=== PATIENT | male | born 1970 | race Caucasian/White ===

== ENCOUNTER → 2020-01-12 11:18 | Outpatient (BNVA) | payer MEDICAID, SELFPAY | PROVIDERS: Family Provider Nurse Practitioner; Visit Provider Nurse Practitioner Family | DX: M79.671 Pain in right foot (principal) | CPT/HCPCS: 73630 ==

== ENCOUNTER 2025-04-23 09:36 | Emergency (ER) | payer MEDICAID, SELFPAY ==
--- OUTSIDE RECORDS SUMMARY | 2025-04-19 13:00 | XMS_ITS | Encounter Summary ---
Author Organization [facility] Address [address] [place] [address] Care Team Providers Care Surfacer Name Role Phone Anna Marie Yariel Primary Care Provider [phone] Reason for Referral * MRI (Routine) - Pending Review Specialty Diagnoses / Procedures Referred By Contac t Referred To Contact Radiology Diagnoses Chronic right-sided low back pain with sciatica, sciatica laterality unspecified Procedures MRI LUMBAR WO CONTRAST Radha Marroquin FNP [address] [place] [phone] Phone: tel: fax: [facility] [place] [address] [place] [address] Phone: tel: fax: Referral ID Status Reason Start Date Expiration Date V isits Requested Visits Authorized [id number] Pending Review 04/19/2025 05/20/2026 1 1 * Eval and Treat (Routine) - Open Specialty Diagnoses / Procedures Referred By Contac t Referred To Contact Pain Management Diagnoses Chronic right-sided low back pain with sciatica, sciatica laterality unspecified Procedures MT OFFICE/OUTPATIENT ESTABLISHED MOD MDM 30 MIN MT OFFICE/OUTPATIENT NEW MODERATE MDM 45 MINUTES Radha Marroquin FNP [address] [place] [phone] Phone: tel: fax: [facility] [address] [place] [address] Phone: tel: fax: Referral ID Status Reason Start Date Expiration Date Visits Re quested Visits Authorized [id number] Open 04/19/2025 04/19/2026 1 1 Reason for Visit * Reason Comments Back Pain Getting worse. Would like to go over xray results. Referral Request Needing a new referr al for Pain management in [facility] Encounter Details Date Type Department Care Team (Late st Contact Info) Description 04/19/2025 1:00 PM CDT Office Visit [facility] [place] [address] [place] [phone] Radha Marroquin FNP [address] [phone] Chronic right-sided low back pain with sciatica, sciatica laterality unspecified (Primary Dx) Social History Tobacco Use Types Packs/Day Years Used Date Smoking Tobacco: Every Day Cigarettes 0.3 40.8 Started: 1984 Passive Smoke Exposure: Current Smokeless Tobacco: Never Alcohol Use Standard Drinks/Week Comments Not Currently 0 (1 standard drink = 0.6 oz pur e alcohol) Sex and Gender Information Value Date Recorded Sex Assigned at Not on file Legal Sex Male 4:48 AM MULTISENSOR INTELLIGENCE OFFICER Gender Identity Not on file Sexual Orientation Not on file documented as of this encounter Last Filed Vital Signs Vital Sign Reading Time Taken Comments Blood Pressure 118/76 04/19/2025 1:11 PM CDT Pulse 95 04/19/2025 1:11 PM CDT Temperature 36.4 C (97.6 F) 04/19/2025 1:11 PM CDT Respiratory Rate 18 04/19/2025 1:11 PM CDT Oxygen Saturation 99% 04/19/2025 1:11 PM CDT Inhaled Oxygen Concentration - - Weight 52.4 kg (115 lb 9.6 oz) 04/19/2025 1:11 P M CDT Height 172.7 cm (5' 8 ) 04/19/2025 1:11 PM CDT Body Mass Index 17.58 04/19/2025 1:11 PM CDT documented in this encounter Progress Notes * Radha Marroquin Abril, COMMUNICATIONS TECHNOLOGIST - 04/19/2025 1:17 PM CDT Chief Complaint Patient presents with Back Pain Getting worse. Would like to go over xray results. Referral Request Needing a new referral for Pain management in [facility] History of Present Illness The patient is a 54-year-old male who presents for follow-up on back pain. He was seen on 04/12/2025. He reports that his current medication regimen, which includes hydrocodone 5 mg and a muscle relaxer, provides relief for approximately 2 hours before the pain returns. He has been taking 3 tablets daily, exhausting his supply of 21 tablets in less than a week. The pain is localized to the right side, extending down the right leg to the toes. He has previously tried gabapentin without any noticeable improvement. He also uses a TENS unit and applies ice and heat to manage the pain. He sleeps in a ball to alleviate pressure and has tried various topical ointments, although many are not suitablefor him. He has undergone nerve cauterization 4 times, which provided temporary relief. However, heexperienced a worsening of symptoms following a steroid injection in the past. Sleep: Sleeps on a ball; uses ice and heat for pain relief REVIEW OF SYSTEMS: Review of Systems Constitutional: Negative. Negative for chills, fever and malaise/fatigue. HENT: Negative. Eyes: Negative. Respiratory: Negative. Cardiovascular: Negative. Gastrointestinal: Negative. Genitourinary: Negative. Musculoskeletal: Positive for back pain. Back pain that radiates down the right leg to the right foot. Skin: Negative. Neurological: Negative. Negative for weakness. Endo/Heme/Allergies: Negative. Psychiatric/Behavioral: Negative. Current Outpatient Medications on File Prior to Visit Medication Sig Dispense Refill baclofen (LIORESAL) 10 mg tablet Take 1 Tablet (10 mg) by mouth 2 times daily as needed for Pain. 15 Tablet 1 HYDROcodone-acetaminophen (NORCO) 5-325 mg tablet Take 1 Tablet by mouth every 8 hours as needed for Pain, Moderate. Max Daily Amount: 3 Tablets 21 Tablet 0 atorvastatin (LIPITOR) 80 mg tablet Take 1 tablet by mouth once daily 100 Tablet 3 cetirizine (ZyrTEC) 10 mg tablet Take 1 tablet by mouth once daily 100 Tablet 0 lisinopriL (PRINIVIL) 10 mg tablet Take 1 Tablet (10 mg) by mouth daily. 100 Tablet 3 acetaminophen 500 mg tablet Take 500 mg by mouth. potassium gluconate 595 mg (99 mg) Tablet Take by mouth. aspirin (ECOTRIN EC) 81 mg Tablet, Delayed Release (E.C.) Take 81 mg by mouth daily. mecobalamin (B12 ACTIVE ORAL) Take by mouth. ergocalciferol, vitamin D2, (VITAMIN D ORAL) Take by mouth. No current facility-administered medications on file prior to visit. PAST MEDICAL/SURGICAL/SOCIAL HISTORY: Past Medical History: Diagnosis Date Arthritis Depression HTN (hypertension) Rheumatic fever Past Surgical History: Procedure Laterality Date HX SHOULDER SURGERY Bilateral HX TONSILLECTOMY Social History Socioeconomic History Marital status: Tobacco Use Smoking status: Every Day Current packs/day: 0.25 Average packs/day: 0.3 packs/day for 40.8 years (10.2 ttl pk-yrs) Types: Cigarettes Start date: 1984 Passive exposure: Current Smokeless tobacco: Never Vaping Use Vaping status: Never Used Substance and Sexual Activity Alcohol use: Not Currently Drug use: No PHYSICAL EXAM Vitals: 04/19/25 1311 BP: 118/76 BP Location: Left arm Patient Position (BP): Sitting BP Cuff Size: Adult Pulse: 95 Resp: 18 Temp: 97.6 ??F (36.4 ??C) TempSrc: Temporal SpO2: 99% Weight: 52.4 kg (115 lb 9.6 oz) Height: 5' 8 (1.727 m) Physical Exam Vitals and nursing note reviewed. Constitutional: General: He is in acute distress. Appearance: He is well-developed. He is not diaphoretic. Comments: Appears to be in pain HENT: Head: Normocephalic and atraumatic. Right Ear: External ear normal. Left Ear: External ear normal. Nose: Nose normal. Mouth/Throat: Mouth: Mucous membranes are moist. Pharynx: No oropharyngeal exudate. Eyes: General: Left eye: No discharge. Conjunctiva/sclera: Conjunctivae normal. Pupils: Pupils are equal, round, and reactive to light. Cardiovascular: Rate and Rhythm: Normal rate and regular rhythm. Pulses: Normal pulses. Heart sounds: Normal heart sounds. No murmur heard. Pulmonary: Effort: Pulmonary effort is normal. No respiratory distress. Breath sounds: Normal breath sounds. Abdominal: General: Bowel sounds are normal. Palpations: Abdomen is soft. Musculoskeletal: General: Tenderness present. Cervical back: Normal range of motion and neck supple. Lumbar back: Tenderness present. Positive right straight leg raise test. Skin: General: Skin is warm and dry. Neurological: Mental Status: He is alert and oriented to person, place, and time. Mental status is at baseline. Comments: Walking with a cane. Psychiatric: Behavior: Behavior normal. Thought Content: Thought content normal. Judgment: Judgment normal. Narrative & Impression IMPRESSION: Please see below. Exam: XR LUMBAR SPINE 2 OR 3 VW Date/Time of Exam: 04/12/2025 3:29 PM Reason For Exam: See Diagnosis. Diagnosis: Chronic right-sided low back pain with sciatica, sciatica laterality unspecified; Chronic right-sided low back pain with sciatica, sciatica laterality unspecified. Findings: Comparison study 11/07/2017. AP alignment within normal limits. No acute osseous pathology. No subluxation. Mild degenerative disc disease L5-S1. No subluxation. Chronic appearing volume loss of vertebral segment of T12. ASSESSMENT/PLAN: Assessment & Plan 1. Back pain: - The patient's back pain is likely due to mild degenerative disk disease at L5- S1 and chronic appearing volume loss at the vertebral segment at T12. He reports that hydrocodone 5 mg and muscle relaxers provide only about 2 hours of relief. He has used all 21 tablets of hydrocodone in less than a week, taking more than the prescribed dosage. -Will collaborate with Dr Thrasher for a refill of Noroc until he is able to get in with pain management. - A referral to pain management will be initiated, and an MRI will be ordered to further evaluate his condition. - He is advised to continue using the TENS unit and topical treatments as needed. Note: This document was created with the help of a voice recognition software. A conscious effort has been made to improve accuracy of this document. Any obvious errors or omissions should be clarified with the author. documented in this encounter Plan of Treatment Upcoming Encounters Date Type Department Care Team (Late st Contact Info) Description 05/05/2025 2:20 PM CDT Office Visit [facility] [address] [place] [phone] Niurka Briscoe MD [address] [place] [address] 05/13/2025 4:00 PM MULTISENSOR INTELLIGENCE OFFICER Appointment [facility] [address] [place] [phone] Radha Marroquin, COMMUNICATIONS TECHNOLOGIST [address] [place] [phone] 10/20/2025 9:40 AM CDT Office Visit [facility] [place] [address] [place] [phone] Yariel Thrasher DO [address] [place] [phone] Scheduled Orders Name Type Priority Associated Diagnoses Orde r Schedule MRI LUMBAR WO CONTRAST Imaging Routine Chronic right-sided low back pain with sciatica, sciatica laterality unspecified 1 Occurrences starting 04/19/2025 until 04/19/2026 Scheduled Referrals Name Type Priority Associated Diagnoses Orde r Schedule AMB REFERRAL TO PAIN CLINIC Outpatient Referral Routine Chronic right-sided low back pain with sciatica, sciatica laterality unspecified Ordered: 04/19/2025 documented as of this encounter Visit Diagnoses Diagnosis Chronic right-sided low back pain with sciatica, sciatica laterality unspecified- Primary documented in this encounter Additional Health Concerns Assessment Noted Time PHQ-9 Depression Total Score: 4 04/12/20 25 2:47 PM CDT documented as of this encounter Care Teams Surfacer Relationship Specialty Start Date End Date Yariel Thrasher DO [address] [place] [phone] PCP - General Family Practice 12/18/22 documented as of this encounter
[2025-04-23 09:55] VITALS: PULSE 78; RESP 18; TEMP 36.6; O2SAT 99
--- OUTSIDE RECORDS SUMMARY | 2025-04-23 10:04 | XMS_ITS | Encounter Summary ---
Author Organization [facility] Address [address] 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
--- OUTSIDE RECORDS SUMMARY | 2025-04-23 10:04 | XMS_ITS | Encounter Summary ---
Author Organization [facility] Address [address] [place] [address] Care Team Providers Care Adobe Layer Helper Name Role Phone Aureliano Hicks MD Primary Care Provider [phone] Encounter Details Date Type Department Care Team (Latest Contact Info) Description 02/10/2004 Outpatient Historical [facility] [address] [place] [address] Cyril Scales MD [address] [phone] LUMBAGO (Primary Dx) Social History Tobacco Use Types Packs/Day Years Used Date Smoking Tobacco: Never Assessed Sex and Gender Information Value Date Recorded Sex Assigned at Not on file Legal Sex Male 4:27 AM SHIP WIRER Gender Identity Not on file Sexual Orientation Not on file documented as of this encounter Plan of Treatment Not on file documented as of this encounter Visit Diagnoses Diagnosis Lumbago- Primary documented in this encounter Care Teams Adobe Layer Helper Relationship Specialty Start Date End Date Aureliano Hicks MD [address] [place] [address] PCP - General Family Practice 05/28/12 documented as of this encounter
--- OUTSIDE RECORDS SUMMARY | 2025-04-23 10:04 | XMS_ITS | Encounter Summary ---
Author Organization [facility] Address [address] [place] [address] Care Team Providers Care Sports Bookmaker Name Role Phone Aureliano Hicks MD Primary Care Provider [phone] Encounter Details Date Type Department Care Team (Late st Contact Info) Description 08/03/2004 Outpatient Historical [facility]- [address] [place] [address] 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 [phone] PCP - General Family Practice 05/28/12 documented as of this encounter
--- OUTSIDE RECORDS SUMMARY | 2025-04-23 10:04 | XMS_ITS | Encounter Summary ---
Author Organization [facility] Address [address] [place] [address] Care Team Providers Care Racing Car Driver Name Role Phone Aureliano Hicks MD Primary Care Provider Encounter Details Date Type Department Care Team (Late st Contact Info) Description 11/13/2004 Outpatient Historical [facility]- [address] [place] [address] 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
--- OUTSIDE RECORDS SUMMARY | 2025-04-23 10:04 | XMS_ITS | Encounter Summary ---
Author Organization [facility] Address [address] [place] [address] Care Team Providers Care Portable Grinding Machine Operator Name Role Phone Aureliano Hicks MD Primary Care Provider [phone] Encounter Details Date Type Department Care Team (Late st Contact Info) Description 01/17/2004 Outpatient Historical [facility] Orthoped[facility]- [address] [place] [address] 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
--- OUTSIDE RECORDS SUMMARY | 2025-04-23 10:04 | XMS_ITS | Encounter Summary ---
Author Organization [facility] Address [address] [place] [address] Care Team Providers Care Heavy Equipment Field Mechanic Name Role Phone Aureliano Hicks MD Primary Care Provider [phone] Encounter Details Date Type Department Care Team (Latest Contact Info) Description 07/30/[address] 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
--- OUTSIDE RECORDS SUMMARY | 2025-04-23 10:04 | XMS_ITS | Encounter Summary ---
Author Organization [facility] Address [address] [place] [address] Care Team Providers Care Complaint Supervisor Name Role Phone Aureliano Hicks MD Primary Care Provider [phone] Encounter Details Date Type Department Care Team (Late st Contact Info) Description 06/08/2005 Outpatient Historical [facility]MISS[facility] Rodriguez Aldana MD [address] [place] [phone] Social History Tobacco Use Types Packs/Day Years Used Date Smoking Tobacco: Never Assessed Sex and Gender Information Value Date Recorded Sex Assigned at Not on file Legal Sex Male 4:27 AM DIRECTOR HRIS Gender Identity Not on file Sexual Orientation Not on file documented as of this encounter Plan of Treatment Not on file documented as of this encounter Visit Diagnoses Not on filedocumented in this encounter Care Teams Complaint Supervisor Relationship Specialty Start Date End Date Aureliano Hicks MD [address] [place] [phone] PCP - General Family Practice 05/28/12 documented as of this encounter
--- OUTSIDE RECORDS SUMMARY | 2025-04-23 10:04 | XMS_ITS | Encounter Summary ---
Author Organization [facility] Address [address] [place] [address] Care Team Providers Care Product Blending Supervisor Name Role Phone Aureliano Hicks MD Primary Care Provider Encounter Details Date Type Department Care Team (Late st Contact Info) Description 09/29/2004 Outpatient [facility] [address] [place] [address] Gabriel Taveras MD [address] [place] [phone] SHOULDER REGION DIS NEC (Primary Dx) Social History Tobacco Use Types Packs/Day Years Used Date Smoking Tobacco: Never Assessed Sex and Gender Information Value Date Recorded Sex Assigned at Not on file Legal Sex Male 4:27 AM MANAGER WOUND CARE Gender Identity Not on file Sexual Orientation Not on file documented as of this encounter Plan of Treatment Not on file documented as of this encounter Visit Diagnoses Diagnosis Other affections of shoulder region, not elsewhere classified- Primary documented in this encounter Care Teams Product Blending Supervisor Relationship Specialty Start Date End Date Aureliano Hicks MD [address] [place] [phone] PCP - General Family Practice 05/28/12 documented as of this encounter
--- OUTSIDE RECORDS SUMMARY | 2025-04-23 10:04 | XMS_ITS | Encounter Summary ---
Author Organization [facility] Address [address] [place] [address] Care Team Providers Care Waste Collector Name Role Phone Aureliano Hicks MD Primary Care Provider [phone] Encounter Details Date Type Department Care Team (Late st Contact Info) Description 05/04/2005 Outpatient Historical [facility] Pain Management Procedures [address] [place] [phone] Wilfred Massey Social History Tobacco Use Types Packs/Day Years Used Date Smoking Tobacco: Never Assessed Sex and Gender Information Value Date Recorded Sex Assigned at Not on file Legal Sex Male 4:27 AM CLOCK SMITH Gender Identity Not on file Sexual Orientation Not on file documented as of this encounter Plan of Treatment Not on file documented as of this encounter Visit Diagnoses Not on filedocumented in this encounter Care Teams Waste Collector Relationship Specialty Start Date End Date Aureliano Hicks MD [address] [place] [phone] PCP - General Family Practice 05/28/12 documented as of this encounter
--- OUTSIDE RECORDS SUMMARY | 2025-04-23 10:04 | XMS_ITS | Encounter Summary ---
Author Organization [facility] Address [address] [place] [address] Care Team Providers Care Studio Operator Name Role Phone Aureliano Hicks MD Primary Care Provider [phone] Encounter Details Date Type Department Care Team (Latest Contact Info) Description 02/28/2005 Outpatient Historical [facility] [address] [place] [address] Cyril Scales MD [address] [place] [address] [phone] Lumbosacral spondylosis (Primary Dx); LUMB/LUMBOSAC DISC DEGEN; BACKACHE NOS Social History Tobacco Use Types Packs/Day Years Used Date Smoking Tobacco: Never Assessed Sex and Gender Information Value Date Recorded Sex Assigned at Not on file Legal Sex Male 4:27 AM FISHER TRAWL LINE Gender Identity Not on file Sexual Orientation Not on file documented as of this encounter Plan of Treatment Not on file documented as of this encounter Visit Diagnoses Diagnosis Lumbosacral spondylosis- Primary Lumbosacral spondylosis without myelopathy Degeneration of lumbar or lumbosacral intervertebral disc Backache, unspecified documented in this encounter Care Teams Studio Operator Relationship Specialty Start Date End Date Aureliano Hicks MD [address] [place] [phone] PCP - General Family Practice 05/28/12 documented as of this encounter
--- OUTSIDE RECORDS SUMMARY | 2025-04-23 10:04 | XMS_ITS | Encounter Summary ---
Author Organization [facility] Address [address] [place] [address] Care Team Providers Care Nursery Attendant Name Role Phone Aureliano Hicks MD Primary Care Provider [phone] Encounter Details Date Type Department Care Team (Late st Contact Info) Description 09/18/2005 [facility]patient [facility] [address] [place] [phone] Social History Tobacco Use Types Packs/Day Years Used Date Smoking Tobacco: Never Assessed Sex and Gender Information Value Date Recorded Sex Assigned at Not on file Legal Sex Male 4:27 AM CAREER TECHNICAL SUPERVISOR Gender Identity Not on file Sexual Orientation Not on file documented as of this encounter Plan of Treatment Not on file documented as of this encounter Visit Diagnoses Not on filedocumented in this encounter Care Teams Nursery Attendant Relationship Specialty Start Date End Date Aureliano Hicks MD [address] [place] [phone] PCP - General Family Practice 05/28/12 documented as of this encounter
--- OUTSIDE RECORDS SUMMARY | 2025-04-23 10:04 | XMS_ITS | Encounter Summary ---
Author Organization [facility] Address [address] [place] [address] Care Team Providers Care Bender Machine Name Role Phone Aureliano Hicks MD Primary Care Provider [phone] Encounter Details Date Type Department Care Team (Latest Contact Info) Description 05/18/2005 Outpatient Historical [facility] [address] 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
--- OUTSIDE RECORDS SUMMARY | 2025-04-23 10:04 | XMS_ITS | Encounter Summary ---
Author Organization [facility] Address [address] [place] [address] Care Team Providers Care Lead Portfolio Manager Name Role Phone Aureliano Hicks MD Primary Care Provider [phone] Encounter Details Date Type Department Care Team (Late st Contact Info) Description 01/05/2004 Outpatient Historical [facility] [address] [place] [address] Gabriel Taveras MD [address] [place] [phone] SHOULDER REGION DIS NEC (Primary Dx) Social History Tobacco Use Types Packs/Day Years Used Date Smoking Tobacco: Never Assessed Sex and Gender Information Value Date Recorded Sex Assigned at Not on file 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
--- OUTSIDE RECORDS SUMMARY | 2025-04-23 10:04 | XMS_ITS | Encounter Summary ---
Author Organization [facility] Address [address] [place] [address] Care Team Providers Care Trumpet Teacher Name Role Phone Aureliano Hicks MD Primary Care Provider [phone] Encounter Details Date Type Department Care Team (Latest Contact Info) Description 04/27/2004 Outpatient Historical [facility] [address] 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
--- OUTSIDE RECORDS SUMMARY | 2025-04-23 10:04 | XMS_ITS | Encounter Summary ---
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
--- OUTSIDE RECORDS SUMMARY | 2025-04-23 10:04 | XMS_ITS | Encounter Summary ---
Author Organization [facility] Address [address] [place] [address] Care Team Providers Care Stem Dryer Maintainer Name Role Phone Aureliano Hicks MD Primary Care Provider [phone] Encounter Details Date Type Department Care Team (Latest Contact Info) Description 04/27/2004 Outpatient Historical [facility] [address] [place] [address] Cyril Scales MD [address] [place] [address] DISC DISPLACEMENT NOS (Primary Dx) Social History Tobacco Use Types Packs/Day Years Used Date Smoking Tobacco: Never Assessed Sex and Gender Information Value Date Recorded Sex Assigned at Not on file 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
--- OUTSIDE RECORDS SUMMARY | 2025-04-23 10:04 | XMS_ITS | Encounter Summary ---
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
--- OUTSIDE RECORDS SUMMARY | 2025-04-23 10:04 | XMS_ITS | Encounter Summary ---
Author Organization [facility] Address [address] [place] [address] Care Team Providers Care Cap Jewel Plate Assembler Name Role Phone Aureliano Hicks MD Primary Care Provider [phone] Encounter Details Date Type Department Care Team (Latest Contact Info) Description 04/10/[address] [facility] [address] 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
--- OUTSIDE RECORDS SUMMARY | 2025-04-23 10:04 | XMS_ITS | Encounter Summary ---
Author Organization [facility] Address [address] [place] [address] Care Team Providers Care Director Marketing Communications Name Role Phone Aureliano Hicks MD Primary Care Provider [phone] Encounter Details Date Type Department Care Team (Late st Contact Info) Description 12/20/2003 Outpatient Historical [facility]oped[facility]- 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
--- OUTSIDE RECORDS SUMMARY | 2025-04-23 10:04 | XMS_ITS | Encounter Summary ---
Author Organization [facility] Address [address] [place] [address] Care Team Providers Care Emergency Department Director Name Role Phone Aureliano Hicks MD Primary Care Provider [phone] Encounter Details Date Type Department Care Team (Late st Contact Info) Description 02/17/2004 Outpatient Historical [facility] [address] 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
--- OUTSIDE RECORDS SUMMARY | 2025-04-23 10:04 | XMS_ITS | Encounter Summary ---
Author Organization [facility] Address [address] [place] [address] Care Team Providers Care Warp Preparer Name Role Phone Aureliano Hicks MD Primary Care Provider [phone] Encounter Details Date Type Department Care Team (Latest Contact Info) Description 05/01/2005 Outpatient Historical [facility] Rodriguez Aldana MD [address] [place] [address] SKIN SENSATION DISTURB (Primary Dx) Social History Tobacco Use Types Packs/Day Years Used Date Smoking Tobacco: Never Assessed Sex and Gender Information Value Date Recorded Sex Assigned at Not on file Legal Sex Male 4:27 AM 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
--- OUTSIDE RECORDS SUMMARY | 2025-04-23 10:04 | XMS_ITS | Encounter Summary ---
Author Organization [facility] Address [address] [place] [address] Care Team Providers Care Bandage Maker Name Role Phone Aureliano Hicks MD Primary Care Provider [phone] Encounter Details Date Type Department Care Team (Late st Contact Info) Description 01/09/2005 Emergency [facility] Emergency Department [address] [place] [address] Rafita Winston MD NO ADDRESS ON FILE DIZZINESS AND GIDDINESS (Primary Dx) Social History Tobacco Use Types Packs/Day Years Used Date Smoking Tobacco: Never Assessed Sex and Gender Information Value Date Recorded Sex Assigned at Not on file Legal Sex Male 4:27 AM TRAINING AND DEVELOPMENT COORDINATOR Gender Identity Not on file Sexual Orientation Not on file documented as of this encounter Plan of Treatment Not on file documented as of this encounter Procedures Procedure Name Priority Date/Time Associated Diagnosis Comments CBC WITH DIFFERENTIAL Routine 01/09/2005 4:18 PM CDT COMPREHENSIVE METABOLIC PANEL Routine 01/09/2005 4:18 PM CDT documented in this encounter Results * COMPREHENSIVE METABOLIC PANEL (01/09/2005 4:18 PM CDT) GLUCOSE 92 70 - 110 mg/dL INTERFACE SYSTEM BUN 13 9 - 20 mg/dL INTERFACE SYSTEM CREATININE 0.9 0.7 - 1.5 mg/dL INTERFACE SYSTEM SODIUM 141 136 - 145 mEq/L INTERFACE SYSTEM POTASSIUM 4.2 3.5 - 5.0 mEq/L INTERFACE SYSTEM CO2 26 22 - 32 mmol/l INTERFACE SYSTEM CHLORIDE 106 95 - 110 mEq/L INTERFACE SYSTEM CALCIUM 8.9 8.4 - 10.5 mg/dL INTERFACE SYSTEM ALKALINE PHOSPHATASE 82 38 - 126 IU/L INTERFACE SYSTEM TOTAL PROTEIN 8.0 6.3 - 8.2 g/dL INTERFACE SYSTEM ALBUMIN 4.3 3.5 - 5.0 g/dL INTERFACE SYSTEM AST 26 17 - 59 IU/L INTERFACE SYSTEM ALT 28 21 - 72 IU/L INTERFACE SYSTEM BILIRUBIN TOTAL 0.6 0.2 - 1.4 mg/dL INTERFACE SYSTEM GLOBULIN (CALC) 3.7 2.4 - 3.9 g/dL INTERFACE SYSTEM ANION GAP 13 9 - 20 mEq/L INTERFACE SYSTEM ALBUMIN/GLOBULIN RATIO 1.2 1.0 - 2.3 INTERFACE SYSTEM OSMOLALITY, CALCULATED 290 275 - 295 mOsm/Kg INTERFACE SYSTEM 01/09/2005 4:18 PM CDT us Rafita Winston MD CHEMISTRY ORDERABLES Final Res ult INTERFACE SYSTEM Refer to clinic/hospital department * (ABNORMAL) CBC WITH DIFFERENTIAL (01/09/2005 4:18 PM CDT) WBC 9.8 4.5 - 11.0 K/ul INTERFACE SYSTEM RBC 5.25 4.60 - 6.20 Mil/ul INTERFACE SYSTEM HEMOGLOBIN 16.2 14.0 - 18.0 g/dL INTERFACE SYSTEM HEMATOCRIT 46.4 41.0 - 53.0 % INTERFACE SYSTEM MCV 88.4 84.0 - 103.0 Fl INTERFACE SYSTEM MCH 30.9 27.0 - 34.0 pg INTERFACE SYSTEM MCHC 34.9 30.0 - 35.0 g/dL INTERFACE SYSTEM RDW 12.4 11.0 - 14.5 % INTERFACE SYSTEM PLATELETS 193 140 - 440 K/ul INTERFACE SYSTEM MPV 12.1 8.9 - 12.8 Fl INTERFACE SYSTEM NEUTROPHILS 75.9(H) 42.2 - 75.2 % INTERFACE SYSTEM LYMPHOCYTES 17.6(L) 24.0 - 44.0 % INTERFACE SYSTEM MONOCYTES 4.8 2.0 - 10.0 % INTERFACE SYSTEM EOSINOPHILS 1.5 0.0 - 7.0 % INTERFACE SYSTEM BASOPHILS 0.2 0.0 - 1.0 % INTERFACE SYSTEM NEUTROPHIL ABSOLUTE 7.4 2.0 - 8.0 K/uL INTERFACE SYSTEM LYMPHOCYTE ABSOLUTE 1.7 1.2 - 4.0 K/ul INTERFACE SYSTEM MONOCYTE ABSOLUTE 0.5 0.1 - 0.6 K/ul INTERFACE SYSTEM EOSINOPHIL ABSOLUTE 0.2 0.0 - 0.7 K/ul INTERFACE SYSTEM BASOPHILS ABSOLUTE 0.0 0.0 - 0.2 K/ul INTERFACE SYSTEM 01/09/2005 4:18 PM CDT Rafita Winston MD HEMATOLOGY ORDERABLES Final Re sult INTERFACE SYSTEM Refer to clinic/hospital department documented in this encounter Visit Diagnoses Diagnosis Dizziness and giddiness- Primary documented in this encounter Care Teams Bandage Maker Relationship Specialty Start Date End Date Aureliano Hicks MD [address] [place] [address] PCP - General Family Practice 05/28/12 documented as of this encounter
--- OUTSIDE RECORDS SUMMARY | 2025-04-23 10:04 | XMS_ITS | Encounter Summary ---
Author Organization [facility] Address [address] [place] [address] Care Team Providers Care Air Force Senior Officer Name Role Phone Aureliano Hicks MD Primary Care Provider [phone] Encounter Details Date Type Department Care Team (Late st Contact Info) Description 10/16/2004 Outpatient Historical [facility] Orthopedics- 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
--- OUTSIDE RECORDS SUMMARY | 2025-04-23 10:04 | XMS_ITS | Encounter Summary ---
Author Organization [facility] Address [address] [place] [address] Care Team Providers Care Tar Chaser Name Role Phone Aureliano Hicks MD Primary Care Provider [phone] Encounter Details Date Type Department Care Team (Late st Contact Info) Description 04/24/2006 Outpatient [facility] [address] [place] [phone] [place] [address] [facility] [address] [place] [address] Lumbago (Primary Dx) Social History Tobacco Use Types Packs/Day Years Used Date Smoking Tobacco: Never Assessed Sex and Gender Information Value Date Recorded Sex Assigned at Not on file 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
--- OUTSIDE RECORDS SUMMARY | 2025-04-23 10:04 | XMS_ITS | Encounter Summary ---
Author Organization [facility] Address [address] [place] [address] Care Team Providers Care Fish Frog Or Oyster Farmer Name Role Phone Aureliano Hicks MD Primary Care Provider [phone] Encounter Details Date Type Department Care Team (Latest Contact Info) Description 05/25/2005 Outpatient Historical [facility] Pain Management Procedures [address] 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
--- OUTSIDE RECORDS SUMMARY | 2025-04-23 10:04 | XMS_ITS | Encounter Summary ---
Author Organization [facility] Address [address] [place] [address] Care Team Providers Care Complaint Adjuster Name Role Phone Aureliano Hicks MD Primary Care Provider [phone] Encounter Details Date Type Department Care Team (Latest Contact Info) Description 06/19/2006 Outpatient Historical [facility] [address] 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
--- OUTSIDE RECORDS SUMMARY | 2025-04-23 10:04 | XMS_ITS | Encounter Summary ---
Author Organization [facility] Address [address] [place] [address] Care Team Providers Care Cellular Biologist Name Role Phone Aureliano Hicks MD Primary Care Provider [phone] Encounter Details Date Type Department Care Team (Latest Contact Info) Description 04/27/2005 Outpatient [facility] [address] [place] [phone] Wilfred Massey LUMBOSACRAL NEURITIS NOS (Primary Dx) Social History Tobacco Use Types Packs/Day Years Used Date Smoking Tobacco: Never Assessed Sex and Gender Information Value Date Recorded Sex Assigned at Not on file Legal Sex Male 4:27 AM APIARIST Gender Identity Not on file Sexual Orientation Not on file documented as of this encounter Plan of Treatment Not on file documented as of this encounter Visit Diagnoses Diagnosis Thoracic or lumbosacral neuritis or radiculitis, unspecified- Primary documented in this encounter Care Teams Cellular Biologist Relationship Specialty Start Date End Date Aureliano Hicks MD [address] [place] [phone] PCP - General Family Practice 05/28/12 documented as of this encounter
--- OUTSIDE RECORDS SUMMARY | 2025-04-23 10:04 | XMS_ITS | Encounter Summary ---
Author Organization [facility] Address [address] [place] [address] Care Team Providers Care Crm Administrator Name Role Phone Aureliano Hicks MD Primary Care Provider [phone] Encounter Details Date Type Department Care Team (Latest Contact Info) Description 04/10/2005 Outpatient [facility] [address] [place] [address] [facility] [address] [place] [phone] Rodriguez Aldana MD [address] [facility] [address] [place] [address] LUMB/LUMBOSAC DISC DEGEN (Primary Dx) Social History Tobacco Use Types Packs/Day Years Used Date Smoking Tobacco: Never Assessed Sex and Gender Information Value Date Recorded Sex Assigned at Not on file Legal Sex Male 4:27 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
--- OUTSIDE RECORDS SUMMARY | 2025-04-23 10:04 | XMS_ITS | Encounter Summary ---
Author Organization [facility] Address [address] [place] [address] Care Team Providers Care Brick Pitcher Name Role Phone Aureliano Hicks MD Primary Care Provider [phone] Encounter Details Date Type Department Care Team (Latest Contact Info) Description 05/01/2005 Outpatient Historical [facility] [address] [place] [address] Rodriguez Aldana MD [address] [phone] LUMBAGO (Primary Dx) Social History Tobacco Use Types Packs/Day Years Used Date Smoking Tobacco: Never Assessed Sex and Gender Information Value Date Recorded Sex Assigned at Not on file Legal Sex Male 4:27 AM ASSISTANT CLINICAL DIRECTOR Gender Identity Not on file Sexual Orientation Not on file documented as of this encounter Plan of Treatment Not on file documented as of this encounter Visit Diagnoses Diagnosis Lumbago- Primary documented in this encounter Care Teams Brick Pitcher Relationship Specialty Start Date End Date Aureliano Hicks MD [address] [place] [address] PCP - General Family Practice 05/28/12 documented as of this encounter
--- OUTSIDE RECORDS SUMMARY | 2025-04-23 10:04 | XMS_ITS | Encounter Summary ---
Author Organization [facility] Address [address] [place] [address] Care Team Providers Care Carpenter Supervisor Name Role Phone Aureliano Hicks MD Primary Care Provider [phone] Encounter Details Date Type Department Care Team (Latest Contact Info) Description 05/18/2005 Outpatient Historical [facility] Pain Management Procedures [address] 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
--- OUTSIDE RECORDS SUMMARY | 2025-04-23 10:04 | XMS_ITS | Encounter Summary ---
Author Organization [facility] Address [address] [place] [address] Care Team Providers Care Puller Out Name Role Phone Aureliano Hicks MD Primary Care Provider [phone] Encounter Details Date Type Department Care Team (Latest Contact Info) Description 05/25/2005 Outpatient Historical [facility] [address] [place] [phone] Wilfred Massey LUMBOSACRAL NEURITIS NOS (Primary Dx) Social History Tobacco Use Types Packs/Day Years Used Date Smoking Tobacco: Never Assessed Sex and Gender Information Value Date Recorded Sex Assigned at Not on file Legal Sex Male 4:27 AM HELIARC WELDER Gender Identity Not on file Sexual Orientation Not on file documented as of this encounter Plan of Treatment Not on file documented as of this encounter Visit Diagnoses Diagnosis Thoracic or lumbosacral neuritis or radiculitis, unspecified- Primary documented in this encounter Care Teams Puller Out Relationship Specialty Start Date End Date Aureliano Hicks MD [address] [place] [phone] PCP - General Family Practice 05/28/12 documented as of this encounter
--- OUTSIDE RECORDS SUMMARY | 2025-04-23 10:04 | XMS_ITS | Encounter Summary ---
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
--- OUTSIDE RECORDS SUMMARY | 2025-04-23 10:04 | XMS_ITS | Encounter Summary ---
Author Organization [facility] Address [address] [place] [address] Care Team Providers Care Polymerization Oven Operator Name Role Phone Aureliano Hicks MD Primary Care Provider Encounter Details Date Type Department Care Team (Latest Contact Info) Description 07/30/2005 Outpatient Historical [facility] Pain Management- [place] [address] [place] [phone] Lorenza Morin, SENIOR BIOSTATISTICIAN [address] [place] [place] [phone] LUMB/LUMBOSAC DISC DEGEN (Primary Dx) Social History Tobacco Use Types Packs/Day Years Used Date Smoking Tobacco: Never Assessed Sex and Gender Information Value Date Recorded Sex Assigned at Not on file Legal Sex Male 4:27 AM WINDOWS SYSTEMS ADMIN Gender Identity Not on file Sexual Orientation Not on file documented as of this encounter Plan of Treatment Not on file documented as of this encounter Visit Diagnoses Diagnosis Degeneration of lumbar or lumbosacral intervertebral disc- Primary documented in this encounter Care Teams Polymerization Oven Operator Relationship Specialty Start Date End Date Aureliano Hicks MD [address] [place] [phone] PCP - General Family Practice 05/28/12 documented as of this encounter
--- OUTSIDE RECORDS SUMMARY | 2025-04-23 10:04 | XMS_ITS | Encounter Summary ---
Author Organization [facility] Address [address] [place] [address] Care Team Providers Care Home Health Care Social Worker Name Role Phone Aureliano Hicks MD Primary Care Provider [phone] Encounter Details Date Type Department Care Team (Latest Contact Info) Description 09/14/2005 Outpatient Historical [facility] Chronic Pain [address] 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
--- OUTSIDE RECORDS SUMMARY | 2025-04-23 10:04 | XMS_ITS | Encounter Summary ---
Author Organization [facility] Address [address] [place] [address] Care Team Providers Care Veterinary Dentist Name Role Phone Aureliano Hicks MD Primary Care Provider [phone] Encounter Details Date Type Department Care Team (Latest Contact Info) Description 02/10/2004 Outpatient [facility] [address] [place] [address] [place] [address] [place] [address] Cyril Scales MD [address] [place] [address] LUMBOSACRAL NEURITIS NOS (Primary Dx) Social History Tobacco Use Types Packs/Day Years Used Date Smoking Tobacco: Never Assessed Sex and Gender Information Value Date Recorded Sex Assigned at Not on file Legal Sex Male 4:27 AM PSYCHOLOGY CLINICIAN Gender Identity Not on file Sexual Orientation Not on file documented as of this encounter Plan of Treatment Not on file documented as of this encounter Visit Diagnoses Diagnosis Thoracic or lumbosacral neuritis or radiculitis, unspecified- Primary documented in this encounter Care Teams Veterinary Dentist Relationship Specialty Start Date End Date Aureliano Hicks MD [address] [place] [address] PCP - General Family Practice 05/28/12 documented as of this encounter
--- OUTSIDE RECORDS SUMMARY | 2025-04-23 10:04 | XMS_ITS | Encounter Summary ---
Author Organization [facility] Address [address] [place] [address] Care Team Providers Care Dye Expert Name Role Phone Aureliano Hicks MD Primary Care Provider [phone] Encounter Details Date Type Department Care Team (Latest Contact Info) Description 02/28/[address] 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
--- OUTSIDE RECORDS SUMMARY | 2025-04-23 10:04 | XMS_ITS | Encounter Summary ---
Author Organization [facility] Address [address] [place] [address] Care Team Providers Care Wood Heel Attacher Name Role Phone Aureliano Hicks MD Primary Care Provider [phone] Encounter Details Date Type Department Care Team (Latest Contact Info) Description 06/19/2006 Outpatient [facility] [address] [place] [address] [place] [facility] [address] [place] [phone] Rodriguez Aldana MD [address] [facility] [address] [place] [address] Chronic Pain Syndrome (Primary Dx) Social History Tobacco Use Types Packs/Day Years Used Date Smoking Tobacco: Never Assessed Sex and Gender Information Value Date Recorded Sex Assigned at Not on file Legal Sex Male 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
--- OUTSIDE RECORDS SUMMARY | 2025-04-23 10:04 | XMS_ITS | Encounter Summary ---
Author Organization [facility] Address [address] [place] [address] Care Team Providers Care Director Of Finance Name Role Phone Aureliano Hicks MD Primary Care Provider [phone] Encounter Details Date Type Department Care Team (Latest Contact Info) Description 10/10/2005 Outpatient [facility] [address] [place] [address] [place] [address] [place] [phone] Wilfred Massey Thoracic or Lumbosacral Neuritis or Radiculitis, Unspecified (Primary Dx) Social History Tobacco Use Types Packs/Day Years Used Date Smoking Tobacco: Never Assessed Sex and Gender Information Value Date Recorded Sex Assigned at Not on file Legal Sex Male 4:27 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
--- OUTSIDE RECORDS SUMMARY | 2025-04-23 10:04 | XMS_ITS | Encounter Summary ---
Author Organization [facility] Address [address] [place] [address] Care Team Providers Care Roller Embosser Name Role Phone Aureliano Hicks MD Primary Care Provider [phone] Encounter Details Date Type Department Care Team (Latest Contact Info) Description 04/27/2005 Outpatient Historical [facility] Pain Management Procedures [address] [place] [phone] Wilfred Massey LUMBOSACRAL NEURITIS NOS (Primary Dx) Social History Tobacco Use Types Packs/Day Years Used Date Smoking Tobacco: Never Assessed Sex and Gender Information Value Date Recorded Sex Assigned at Not on file Legal Sex Male 4:27 AM WORKPLACE RELATIONS ADVISER Gender Identity Not on file Sexual Orientation Not on file documented as of this encounter Plan of Treatment Not on file documented as of this encounter Visit Diagnoses Diagnosis Thoracic or lumbosacral neuritis or radiculitis, unspecified- Primary documented in this encounter Care Teams Roller Embosser Relationship Specialty Start Date End Date Aureliano Hicks MD [address] [place] [phone] PCP - General Family Practice 05/28/12 documented as of this encounter
--- OUTSIDE RECORDS SUMMARY | 2025-04-23 10:04 | XMS_ITS | Encounter Summary ---
Author Organization [facility] Address [address] 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
--- OUTSIDE RECORDS SUMMARY | 2025-04-23 10:04 | XMS_ITS | Encounter Summary ---
Author Organization [facility] Address [address] [place] [address] Care Team Providers Care Stove Mounter Name Role Phone Aureliano Hicks MD Primary Care Provider [phone] Encounter Details Date Type Department Care Team (Late st Contact Info) Description 10/10/2005 Outpatient Historical [facility] [address] [place] [phone] Social History Tobacco Use Types Packs/Day Years Used Date Smoking Tobacco: Never Assessed Sex and Gender Information Value Date Recorded Sex Assigned at Not on file Legal Sex Male 4:27 AM HAT AND CAP SEWER Gender Identity Not on file Sexual Orientation Not on file documented as of this encounter Plan of Treatment Not on file documented as of this encounter Visit Diagnoses Not on filedocumented in this encounter Care Teams Stove Mounter Relationship Specialty Start Date End Date Aureliano Hicks MD [address] [place] [address] PCP - General Family Practice 05/28/12 documented as of this encounter
--- OUTSIDE RECORDS SUMMARY | 2025-04-23 10:04 | XMS_ITS | Encounter Summary ---
Author Organization [facility] Address [address] [place] [address] Care Team Providers Care Tight Cooper Name Role Phone Aureliano Hicks MD Primary Care Provider [phone] Encounter Details Date Type Department Care Team (Latest Contact Info) Description 04/24/2006 Outpatient Historical [facility] [address] 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
--- OUTSIDE RECORDS SUMMARY | 2025-04-23 10:05 | XMS_ITS | Encounter Summary ---
Author Organization [facility] Address [address] [place] [address] Care Team Providers Care Stab Setter And Driller Name Role Phone Yariel Thrasher DO Primary Care Provider [phone] Reason for Visit * Reason Comments Medication Refill Encounter Details Date Type Department Care Team ([facility] st Contact Info) Description 04/15/[address] [phone] Yariel Thrasher DO [address] [place] [phone] Medication Refill Social History Tobacco Use Types Packs/Day Years Used Date Smoking Tobacco: Every Day Cigarettes 0.3 40.8 Started: 1984 Passive Smoke Exposure: Current Smokeless Tobacco: Never Alcohol Use Standard Drinks/Week Comments Not Currently 0 (1 standard drink = 0.6 oz pur e alcohol) Sex and Gender Information Value Date Recorded Sex Assigned at Not on file Legal Sex Male 4:48 AM COOPERAGE SHOP SUPERVISOR Gender Identity Not on file Sexual Orientation Not on file documented as of this encounter Miscellaneous Notes * Telephone Encounter - Gloria Lancaster LPN - 04/15/2025 4:14 PM CDT 04/15/2025 4:14 PM Returned call and spoke with patient/Bertha. Discussed Radha's message. They also asked to have a referral to [facility] pain management so that he can get his nerve endings burnt like before. They did callpain management but was told since it had been over 5 years that he would require another referral. Gloria CHAPIN * Telephone Encounter - Kathleen Lake - 04/15/2025 10:21 AM CDT Copied from [facility] #[id number]. Topic: Medication Request >> Apr 15, 2025 10:20 AM Kathleen Augustin wrote: Caller Name: Bertha Callback Number: [phone] Medication (Ask patient/caregiver to spell if possible): muscle relaxer Note: All medication prescriptions can be requested using one [facility] Preferred Pharmacy: [facility] in [facility] Call Notes: Caller is requesting a new medication, which is not active on their medication list. Are you currently experiencing any symptoms? Yes, and has been seen by provider for the symptom(s) Is there an encounter open? No documented in this encounter Plan of Treatment Upcoming Encounters Date Type Department Care Team (Late st Contact Info) Description 05/05/2025 2:20 PM CDT Office Visit [facility] [address] [address] [place] [address] Niurka Briscoe MD [address] [place] [address] 05/13/2025 4:00 PM COOPERAGE SHOP SUPERVISOR Appointment [facility] [address] [place] [phone] Radha Marroquin, METROLOGY TECHNICIAN [address] [place] [address] 10/20/2025 9:40 AM CDT Office Visit [facility] Family [facility] [place] [address] [place] [address] Yariel Thrasher DO [address] [place] [phone] documented as of this encounter Visit Diagnoses Diagnosis 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
--- OUTSIDE RECORDS SUMMARY | 2025-04-23 10:05 | XMS_ITS | Encounter Summary ---
Author Organization [facility] Address [address] [place] [address] Care Team Providers Care Rolled Materials Worker Name Role Phone LoniYariel concepcion Primary Care Provider [phone] Encounter Details Date Type Department Care Team (Late Contact Info) Description 04/13/2025 Results Follow-Up [facility] Family Medicine [place] [address] [phone] Yariel Thrasher DO [address] [phone] CBC WITH DIFFERENTIAL, TSH, LIPID PANEL, Additional followed-up results: 2 Social History Tobacco Use Types Packs/Day Years Used Date Smoking Tobacco: Every Day Cigarettes 0.3 40.8 Started: 1984 Passive Smoke Exposure: Current Smokeless Tobacco: Never Alcohol Use Standard Drinks/Week Comments Not Currently 0 (1 standard drink = 0.6 oz pur e alcohol) Sex and Gender Information Value Date Recorded Sex Assigned at Not on file Legal Sex Male 4:48 AM SCIENTIST IMMUNOLOGY Gender Identity Not on file Sexual Orientation Not on file documented as of this encounter Plan of Treatment Upcoming Encounters Date Type Department Care Team (Late Contact Info) Description 05/05/2025 2:20 PM CDT Office Visit [facility] Pain Management [address] [place] [address] Niurka Briscoe MD [address] [place] [address] 05/13/2025 4:00 PM SCIENTIST IMMUNOLOGY Appointment [facility] [address] [place] [address] Radha Marroquin, G[employer] PU[employer]ING [employer]ATION SUPERVISOR [address] [place] [phone] 10/20/2025 9:40 AM CDT Office Visit [facility] ([place], [place]) [address] [place] [phone] Yariel Thrasher, [address] [place] [phone] documented as of this encounter Procedures Procedure Name Priority Date/Time Associated Diagnosis Comments FOLATE, SERUM [facility] (Auto-Fax) 04/12/2025 12:00 AM CDT Iron deficiency anemia, unspecified iron deficiency anemia type IRON, TIBC, AND PERCENT SATURATION [facility] (Auto-Fax) 04/12/2025 12:00 AM CDT Iron deficiency anemia, unspecified iron deficiency anemia type FERRITIN [facility] (Auto-Fax) 04/12/2025 12:00 AM CDT Iron deficiency anemia, unspecified iron deficiency anemia type VITAMIN B12 LEVEL [facility] (Auto-Fax) 04/12/2025 12:00 AM CDT Iron deficiency anemia, unspecified iron deficiency anemia type documented in this encounter Results * (ABNORMAL) VITAMIN B12 LEVEL (04/12/2025 12:00 AM CDT) VITAMIN B12 >2000(H) 200 - 1100 pg/mL [facility] Comment: Test Performed at: [facility] [address] [place] [address] Mil Max MD Blood 04/12/2025 04/13/2025 8:1 6 AM CDT Yariel Thrasher CHEMISTRY ORDERABLES Final Re sult Performing Organization Address [facility]/ZIP Co de Phone Number [facility] [phone] [facility] [address] * FOLATE, SERUM (04/12/2025 12:00 AM CDT) Pathologist [facility] FOLATE, SERUM 21.9 ng/mL [facility] Comment: Reference Range Low: <3.4 Borderline: 3.4-5.4 Normal: >5.4 Test Performed at: [facility] [address] Mil Max MD Blood 04/12/2025 04/13/2025 8:1 6 AM CDT Yariel Barbe CHEMISTRY ORDERABLES Final Re sult Performing Organization Address [facility] Co de Phone Number [facility] [phone] [facility] [address] [place] [address] * FERRITIN (04/12/2025 12:00 AM CDT) Pathologist [facility] FERRITIN 43 38 - 380 ng/mL [facility] Comment: Test Performed at: [facility] [address] Mil Max MD Blood 04/12/2025 04/13/2025 8:1 6 AM CDT Yariel Anna Marie Enliken CHEMISTRY ORDERABLES Final Re sult Performing Organization Address [facility]/ZIP Co de Phone Number [facility] [phone] [facility] [address] * (ABNORMAL) IRON, TIBC, AND PERCENT SATURATION (04/12/2025 12:00 AM CDT) IRON 43(L) 50 - 180 mcg/dL [facility] TIBC 359 250 - 425 mcg/dL (calc) [facility] IRON % SATURATION 12(L) 20 - 48 % (calc) [facility] Comment: Test Performed at: [facility] [address] [place] [address] Mil Max MD Blood 04/12/2025 04/13/2025 8:1 6 AM CDT us Yariel Thrasher DO CHEMISTRY ORDERABLES Final Re sult [facility] [phone] [facility] [address] [place] [address] documented in this encounter Visit Diagnoses Diagnosis Iron deficiency anemia, unspecified iron deficiency anemia type- Primary documented in this encounter Additional Health Concerns Assessment Noted Time PHQ-9 Depression Total Score: 4 04/12/20 25 2:47 PM CDT documented as of this encounter Care Teams Rolled Materials Worker Relationship Specialty Start Date End Date Yariel Thrasher DO [address] [place] [phone] PCP - General Family Practice 12/18/22 documented as of this encounter
--- OUTSIDE RECORDS SUMMARY | 2025-04-23 10:05 | XMS_ITS | Clinical Summary ---
Author Organization Pamela g[facility] Address [address] [place] [address] Phone Care Team Providers Care Electro Tech Name Role Phone Aureliano Hicks MD Primary Care Provider [phone] Allergies No known active allergies Medications acetaminophen (TYLENOL EXTRA STRENGTH) 500 mg Oral tablet Take 500 mg by mouth 3 times daily. Active mecobalamin (B12 ACTIVE ORAL) Take by mouth. Active aspirin (ECOTRIN EC) 81 mg Tablet, Delayed Release (E.C.) Take 81 mg by mouth daily. Active ergocalciferol, vitamin D2, (VITAMIN D ORAL) Take by mouth. Active cetirizine (ZyrTEC) 10 mg tabletIndications:S easonal allergic rhinitis due to pollen Take 10 mg by mouth daily. Active potassium gluconate 595 mg (99 mg) Tablet Take by mouth. Active lisinopriL (PRINIVIL) 10 mg tablet Take 1 Tablet (10 mg) by mouth daily. 90 Tablet 1 1 Active busPIRone (BUSPAR) 15 mg TabletIndications:G eneralized anxiety disorder Take 1 Tablet (15 mg) by mouth 2 times daily. 180 Tablet 4 1 Active nabumetone (RELAFEN) 500 mg tabletIndications:P rimary osteoarthritis involving multiple joints,Chronic midline low back pain with bilateral sciatica Take 1 Tablet (500 mg) by mouth 2 times daily. 180 Tablet 1 1 Active atorvastatin (LIPITOR) 80 mg tabletIndications:M ixed hyperlipidemia Take 1 Tablet (80 mg) by mouth daily. 90 Tablet 1 1 Active FLUoxetine (PROzac) 40 mg capsuleIndications: Recurrent major depressive disorder, in full remission Take 1 Capsule (40 mg) by mouth daily. 90 Capsule 4 1 Active Active Problems Problem Noted Date Diagnosed Date Vitamin D deficiency 09/18/2020 Recurrent major depressive disorder, in full rem ission 07/05/2020 Mixed hyperlipidemia 07/05/2020 Generalized anxiety disorder 07/05/2020 Seasonal allergic rhinitis due to pollen 020 Essential hypertension 07/05/2020 Primary osteoarthritis involving multiple joints 07/05/2020 Chronic midline low back pain with bilateral sci atica 06/02/2012 Spinal stenosis, lumbar danisha on, without neurogenic claudication 06/02/2012 Social History Tobacco Use Types Packs/Day Years Used Date Smoking Tobacco: Every Day Cigarettes 1 20 Smokeless Tobacco: Never Alcohol Use Standard Drinks/Week Comments Yes 0 (1 standard drink = 0.6 oz pur e alcohol) occassionally Sex and Gender Information Value Date Recorded Sex Assigned at Not on file Legal Sex Male 4:27 AM REPAIRER FINISHED METAL Gender Identity Not on file Sexual Orientation Not on file Occupation Industry Job Start Date Job End Date Not on file Not on file Not on file Not on file Last Filed Vital Signs Vital Sign Reading Time Taken Comments Blood Pressure 108/60 09/15/2020 10:54 AM REPAIRER FINISHED METAL Pulse 83 09/15/2020 10:54 AM REPAIRER FINISHED METAL Temperature 36.9 C (98.4 F) 09/15/2020 10:54 AM REPAIRER FINISHED METAL Respiratory Rate 18 06/23/2020 2:29 PM REPAIRER FINISHED METAL Oxygen Saturation 97% 09/15/2020 10:54 AM REPAIRER FINISHED METAL Inhaled Oxygen Concentration - - Weight 64 kg (141 lb) 09/15/2020 10:54 AM REPAIRER FINISHED METAL Height 172.7 cm (5' 8 ) 09/15/2020 10:54 AM REPAIRER FINISHED METAL Body Mass Index 21.44 09/15/2020 10:54 AM REPAIRER FINISHED METAL Plan of Treatment Health Maintenance Due Date Last Done Comments DTAP/TDAP/TD VACCINES (1 - Tdap) 11/03/1990 HEPATITIS B VACCINES (1 of 3 - 19+ 3-dose series) 10/07 COLORECTAL SCREENING 11/03/2016 Colorectal Cancer Screening 11/03/2016 FIT-DNA Q 3 years 11/03/2016 FIT/FOBT Q 1 year 11/03/2016 Flex Sig/CT Colonography Q 5 years 11/03/2016 Preventative Visit-Managed Medicaid 07/31/202007/30 ZOSTER VACCINE (1 of 2) 11/03/2021 INFLUENZA VACCINE (#1) 2025 Insurance [facility] Care Teams Electro Tech Relationship Specialty Start Date End Date Aureliano Hicks MD [address] [place] [address] PCP - General Family Practice 05/28/12
--- OUTSIDE RECORDS SUMMARY | 2025-04-23 10:05 | XMS_ITS | Encounter Summary ---
Author Organization [facility] Address [address] [place] [address] Care Team Providers Care Ship Rigger Name Role Phone Lonicarlene Yariel BENNETT Primary Care Provider [phone] Reason for Visit * Reason Onset Date Comments Medication Refill 04/16/2025 Encounter Details Date Type Department Care Team (Late Contact Info) Description 04/16/2025 Refill [facility] Medicine [address] [phone] Yariel Thrasher DO [address] [phone] Chronic right-sided low back pain with sciatica, sciatica laterality unspecified Social History Tobacco Use Types Packs/Day Years Used Date Smoking Tobacco: Every Day Cigarettes 0.3 40.8 Started: 1984 Passive Smoke Exposure: Current Smokeless Tobacco: Never Alcohol Use Standard Drinks/Week Comments Not Currently 0 (1 standard drink = 0.6 oz pur e alcohol) Sex and Gender Information Value Date Recorded Sex Assigned at Not on file Legal Sex Male 4:48 AM LIBRARIAN SPECIAL COLLECTIONS Gender Identity Not on file Sexual Orientation Not on file documented as of this encounter Plan of Treatment Upcoming Encounters Date Type Department Care Team (Late Contact Info) Description 05/05/2025 2:20 PM CDT Office Visit [facility] Pain [facility] [address] [place] [address] Niurka Briscoe MD [address] [place] [address] 05/13/2025 4:00 PM LIBRARIAN SPECIAL COLLECTIONS Appointment [facility] [address] [place] [phone] Radha Marroquin, SOFTBALL PLAYER [address] [place] [phone] 10/20/2025 9:40 AM CDT Office Visit [facility] [address] [place] [phone] Yariel Thrasher DO [address] [place] [phone] documented as of this encounter Visit Diagnoses Diagnosis Chronic right-sided low back pain with sciatica, sciatica laterality unspecified documented in this encounter Additional Health Concerns Assessment Noted Time PHQ-9 Depression Total Score: 4 04/12/20 25 2:47 PM CDT documented as of this encounter Care Teams Ship Rigger Relationship Specialty Start Date End Date Yariel Thrasher DO [address] [place] [phone] PCP - General Family Practice 12/18/22 documented as of this encounter
--- OUTSIDE RECORDS SUMMARY | 2025-04-23 10:05 | XMS_ITS | Clinical Summary ---
[facility] Organization [facility] Address [address] [place] [address] Phone Care Team Providers Care Family Practice Medical Doctor Name Role Phone LoniYariel concepcion Primary Care Provider [phone] Allergies No known active allergies Medications potassium gluconate 595 mg (99 mg) Tablet Take by mouth. 0 Active aspirin (ECOTRIN EC) 81 mg Tablet, Delayed Release (E.C.) Take 81 mg by mouth daily. 0 Active mecobalamin (B12 ACTIVE ORAL) Take by mouth. 0 Active ergocalciferol, vitamin D2, (VITAMIN D ORAL) Take by mouth. 0 Active acetaminophen 500 mg tablet Take 500 mg by mouth. Active atorvastatin (LIPITOR) 80 mg tabletIndications: Mixed hyperlipidemia Take 1 tablet by mouth once daily 100 Tablet 3 5 Active cetirizine (ZyrTEC) 10 mg tabletIndications: Seasonal allergic rhinitis due to pollen Take 1 tablet by mouth once daily 100 Tablet 5 Active lisinopriL (PRINIVIL) 10 mg tabletIndications: Essential hypertension Take 1 Tablet (10 mg) by mouth daily. 100 Tablet 3 5 Active baclofen (LIORESAL) 10 mg tabletIndications: Chronic right-sided low back pain with sciatica, sciatica laterality unspecified Take 1 Tablet (10 mg) by mouth 2 times daily as needed for Pain. 15 Tablet 1 5 Active HYDROcodone-acetam inophen (NORCO) 5-325 mg tabletIndications: Chronic right-sided low back pain with sciatica, sciatica laterality unspecified Take 1 Tablet by mouth every 8 hours as needed for Pain, Moderate. Max Daily Amount: 3 Tablets 21 Tablet 5 Active HYDROcodone-acetam inophen (NORCO) 5-325 mg tabletIndications: Chronic right-sided low back pain with sciatica, sciatica laterality unspecified Take 1 Tablet by mouth every 8 hours as needed for Pain, Moderate. Max Daily Amount: 3 Tablets 21 Tablet 5 04/19/20 25 Discontin ued(Reord er) Active Problems Problem Noted Date Diagnosed Date Vaccine refused by patient 05/01/2024 Full dentures 05/01/2024 History of stroke without residual deficits 03/08 Tobacco use 12/18/2022 Vitamin D deficiency 09/18/2020 Mixed hyperlipidemia 07/05/2020 Essential hypertension 07/05/2020 Seasonal allergic rhinitis due to pollen 020 Generalized anxiety disorder 07/05/2020 Primary osteoarthritis involving multiple joints 07/05/2020 Chronic midline low back pain with bilateral sci atica 06/02/2012 Spinal stenosis, lumbar danisha on, without neurogenic claudication 06/02/2012 Resolved Problems Problem Noted Date Diagnosed Date Resolved Date Recurrent major depressive d isorder, in full remission 07/05/2020 12/18/2022 Encounters Date Type Department Care Team Description 04/19/2025 1:00 PM CDT Office Visit [address] [phone] Radha Marroquin, ANTIQUE REPAIRER Chronic right-sided low back pain with sciatica, sciatica laterality unspecified (Primary Dx) 04/18/[address] [phone] Yariel Thrasher DO Chronic right-sided low back pain with sciatica, sciatica laterality unspecified 04/16/[address] [phone] Yariel Thrasher DO Chronic right-sided low back pain with sciatica, sciatica laterality unspecified 04/15/2025 Orders Only [address] [place] [address] Radha Marroquin FNP Chronic right-sided low back pain with sciatica, sciatica laterality unspecified (Primary Dx) 04/15/[address] [phone] Yariel Thrasher DO Medication Refill 04/15/[address] [phone] Yariel Thrasher DO Results 04/13/2025 Results Follow-Up [address] [phone] Yairel Thrasher DO CBC WITH DIFFERENTIAL, TSH, LIPID PANEL, Additional followed-up results: 2 04/12/2025 3:30 PM CDT Ancillary Procedure [address] [phone] Radha Marroquin FNP Chronic right-sided low back pain with sciatica, sciatica laterality unspecified 04/12/2025 2:20 PM CDT Office Visit [address] [phone] Radha Marroquin FNP Normal routine physical examination (Primary Dx); Chronic right-sided low back pain with sciatica, sciatica laterality unspecified; Mixed hyperlipidemia; Essential hypertension from Last 3 Months Social History Tobacco Use Types Packs/Day Years Used Date Smoking Tobacco: Every Day Cigarettes 0.3 40.8 Started: 1984 Passive Smoke Exposure: Current Smokeless Tobacco: Never Tobacco Cessation:Ready to Q uit: Not Asked; Counseling Given: Not Answered Alcohol Use Standard Drinks/Week Comments Not Currently 0 (1 standard drink = 0.6 oz pur e alcohol) Sex and Gender Information Value Date Recorded Sex Assigned at Not on file Legal Sex Male 4:48 AM AIRCRAFT RESTORER Gender Identity Not on file Sexual Orientation Not on file Last Filed Vital Signs [...] Mass Index 17.58 04/19/2025 1:11 PM CDT Plan of Treatment Upcoming Encounters Date Type Department Care Team (Late st Contact Info) Description 05/05/2025 2:20 PM CDT Office Visit [facility] [address] [place] [phone] Niurka Briscoe MD [address] [place] [phone] 05/13/2025 4:00 PM AIRCRAFT RESTORER Appointment [facility] [address] [place] [phone] Radha Marroquin, ANTIQUE REPAIRER [address] [place] [phone] 10/20/2025 9:40 AM CDT Office Visit [facility] [place] [address] [place] [phone] Yariel Thrasher DO [address] [place] [phone] Health Maintenance Due Date Last Done Comments DTAP/TDAP/TD VACCINES (1 - Tdap) 11/03/1990 HEPATITIS B VACCINES (1 of 3 - 19+ 3-dose series) 11/03/1990 COLORECTAL SCREENING 11/03/2016 Colorectal Cancer Screening 11/03/2016 FIT-DNA Q 3 years 11/03/2016 FIT/FOBT Q 1 year 11/03/2016 Flex Sig/CT Colonography Q 5 years 11/03/2016 ZOSTER VACCINE (1 of 2) 11/03/2021 INFLUENZA VACCINE (#1) 2025 Preventative Visit-Managed Medicaid 04/13/2026 04/12/2025, 05/01/2024, 05/27/2023 Procedures Procedure Name Priority Date/Time Associated Diagnosis Comments LIPID PANEL Routine 04/12/2025 3:45 PM CDT Normal routine physical examination HEMOGLOBIN A1C Routine 04/12/2025 3:44 PM CDT Normal routine physical examination TSH Routine 04/12/2025 3:44 PM CDT Normal routine physical examination COMPREHENSIVE METABOLIC PANEL Routine 04/12/2025 3:44 PM CDT Normal routine physical examination CBC WITH DIFFERENTIAL Routine 04/12/2025 3:44 PM CDT Normal routine physical examination XR LUMBAR SPINE 2 OR 3 VW Routine 04/12/2025 3:29 PM CDT Chronic right-sided low back pain with sciatica, sciatica laterality unspecified FOLATE, SERUM [facility] (Auto-Fax) 04/12/2025 12:00 [...] deficiency anemia, unspecified iron deficiency anemia type from Last 3 Months Results * LIPID PANEL (04/12/2025 3:45 PM CDT) CHOLESTEROL 129 <200 mg/dL [facility] HDL 55 > OR = 40 mg/dL [facility] TRIGLYCERIDE 131 <150 mg/dL [facility] LDL CALCULATED 53 mg/dL (calc) [facility] Comment: Reference range: <100 Desirable range <100 mg/dL for primary prevention; <70 mg/dL for patients with CHD or diabetic patients with > or = 2 CHD risk factors. LDL-C is now calculated using the Lidia calculation, which is a validated novel method providing better accuracy than the Friedewald equation in the estimation of LDL-C. Conner SS et al. DISHA. 2013;310(19): 8682-5301 (http://education.PiAuto/faq/BNZ192) CHOL/HDL RATIO 2.3 <5.0 (calc) [facility] NON-HDL CHOLESTEROL 74 <130 mg/dL (calc) [facility] Comment: For patients with diabetes plus 1 major ASCVD risk factor, treating to a non-HDL-C goal of <100 mg/dL (LDL-C of <70 mg/dL) is considered a therapeutic option. Test Performed at: [facility] [address] [place] [address] Mil Max MD Blood 04/12/2025 3:45 PM CDT 04/12/2025 3:45 PM CDT us Radha Marroquin ANTIQUE REPAIRER CHEMISTRY ORDERABLES Final Re sult [facility] [phone] [facility] [address] [facility] [address] * (ABNORMAL) CBC WITH DIFFERENTIAL (04/12/2025 3:44 PM CDT) Pathologist [facility] WBC 6.7 3.8 - 10.8 Thousand/u L [facility] RBC 4.20 4.20 - 5.80 Million/uL [facility] HEMOGLOBIN 12.3(L) 13.2 - 17.1 g/dL [facility] HEMATOCRIT 38.3(L) 38.5 - 50.0 % [facility] MCV 91.2 80.0 - 100.0 fL [facility] MCH 29.3 27.0 - 33.0 pg [facility] MCHC 32.1 32.0 - 36.0 g/dL [facility] Comment: For adults, a slight decrease in the calculated MCHC value (in the range of 30 to 32 g/dL) is most likely not clinically significant; however, it should be interpreted with caution in correlation with other red cell parameters and the patient's clinical condition. RDW 11.6 11.0 - 15.0 % [facility] PLATELETS 355 140 - 400 Thousand/u L [facility] MPV 11.3 7.5 - 12.5 fL [facility] NEUTROPHIL ABSOLUTE 3,578 1,500 - 7,800 cells/uL [facility] LYMPHOCYTE ABSOLUTE 2,345 850 - 3,900 cells/uL [facility] MONOCYTE ABSOLUTE 610 200 - 950 cells/uL [facility] EOSINOPHIL ABSOLUTE 127 15 - 500 cells/uL [facility] BASOPHILS ABSOLUTE 40 0 - 200 cells/uL [facility] NEUTROPHIL 53.4 % [facility] LYMPHOCYTES 35.0 % [facility] MONOCYTE 9.1 % [facility] EOSINOPHILS 1.9 % [facility] BASOPHILS 0.6 % [facility] Comment: Test Performed at: [facility] [address] [address] [address] Mil Max MD Blood 04/12/2025 3:44 PM CDT 04/12/2025 3:44 PM CDT us Radha Marroquin ANTIQUE REPAIRER HEMATOLOGY ORDERABLES Final R esult [facility] [phone] [address] [facility] [address] [place] [address] * TSH (04/12/2025 3:44 PM CDT) [facility] TSH 0.90 0.40 - 4.50 mIU/L [facility] Comment: Test Performed at: [address] [place] [address] Mil Max MD Blood 04/12/2025 3:44 PM CDT 04/12/2025 3:44 PM CDT Radha Marroquin ANTIQUE REPAIRER CHEMISTRY ORDERABLES Final Re sult [facility] [phone] [facility] [address] [address] * (ABNORMAL) HEMOGLOBIN A1C (04/12/2025 3:44 PM CDT) [facility] HEMOGLOBIN A1C 5.7(H) <5.7 % [facility] Comment: For someone without known diabetes, a hemoglobin A1c value between 5.7% and 6.4% is consistent with prediabetes and should be confirmed with a follow-up test. For someone with known diabetes, a value <7% indicates that their diabetes is well controlled. A1c targets should be individualized based on duration of diabetes, age, comorbid conditions, and other considerations. This assay result is consistent with an increased risk of diabetes. Currently, no consensus exists regarding use of hemoglobin A1c for diagnosis of diabetes for children. ESTIMATED AVERAGE GLUCOSE (MG/DL) 117 mg/dL [facility] ESTIMATED AVERAGE GLUCOSE (MMOL/L) 6.5 mmol/L [facility] Comment: Test Performed at: [address] [place] [address] Mil Max MD Blood 04/12/2025 3:44 PM CDT 04/12/2025 3:44 PM CDT us Radha COFFEYP CHEMISTRY ORDERABLES Final Re sult [facility] [phone] [facility] [address] [address] [phone] * (ABNORMAL) COMPREHENSIVE METABOLIC PANEL (04/12/2025 3:44 PM CDT) GLUCOSE 91 65 - 99 mg/dL [facility] Comment: Fasting reference interval BUN 20 7 - 25 mg/dL [facility] CREATININE 1.02 0.70 - 1.30 mg/dL [facility] GFR 88 > OR = 60 mL/min/1. 73m2 [facility] BUN/CREAT RATIO SEE NOTE: 6 - 22 (calc) [facility] Comment: Not Reported: BUN and Creatinine are within reference range. SODIUM 137 135 - 146 mmol/L [facility] POTASSIUM 4.8 3.5 - 5.3 mmol/L [facility] CHLORIDE 97(L) 98 - 110 mmol/L [facility] CO2 31 20 - 32 mmol/L [facility] CALCIUM 9.3 8.6 - 10.3 mg/dL [facility] TOTAL PROTEIN 7.1 6.1 - 8.1 g/dL [facility] ALBUMIN 4.1 3.6 - 5.1 g/dL [facility] GLOBULIN 3.0 1.9 - 3.7 g/dL (calc) [facility] ALBUMIN/GLOBULIN RATIO 1.4 1.0 - 2.5 (calc) [facility] BILIRUBIN TOTAL 0.3 0.2 - 1.2 mg/dL [facility] ALKALINE PHOSPHATASE 144 35 - 144 U/L [facility] AST 32 10 - 35 U/L [facility] ALT 19 9 - 46 U/L [facility] Comment: Test Performed at: [facility] [facility] [id number] [address] [address] Mil Max MD Blood 04/12/2025 3:44 PM CDT 04/12/2025 3:44 PM CDT Radha Marroquin [facility] CHEMISTRY ORDERABLES Final Re sult [facility] [phone] [address] [facility] [address] [address] [address] * XR LUMBAR SPINE 2 OR 3 VW (04/12/2025 3:29 PM CDT) Anatomical Region Laterality Modality Spine Computed Radiogr aphy 04/12/2025 3:29 PM CDT Impressions 04/13/2025 8:01 AM CDT IMPRESSION: Please see below. Exam: XR LUMBAR [...] volume loss of vertebral segment of T12. Narrative Procedure Note Denver Shankar MD - 04/13/2025 IMPRESSION: Please see below. Exam: XR LUMBAR [...] volume loss of vertebral segment of T12. us Radha COFFEYP DIAGNOSTIC IMAGING ORDERABLES Final Result * FOLATE, SERUM (04/12/2025 12:00 AM CDT) FOLATE, SERUM 21.9 ng/mL [facility] Comment: Reference Range Low: <3.4 Borderline: 3.4-5.4 Normal: >5.4 Test Performed at: [facility] [facility] [address] [facility] [place] [address] Mil Max MD Blood 04/12/2025 04/13/2025 8:1 6 AM CDT [employer] CHEMISTRY ORDERABLES Final Re sult Performing Organization Address [facility] Co de Phone Number [facility] [phone] [address] [facility] [address] [place] [address] [place] [address] * (ABNORMAL) IRON, TIBC, AND PERCENT SATURATION (04/12/2025 12:00 AM CDT) IRON 43(L) 50 - 180 mcg/dL [facility] TIBC 359 250 - 425 mcg/dL (calc) [facility] IRON % SATURATION 12(L) 20 - 48 % (calc) [facility] Comment: Test Performed at: [facility] [facility] [address] [place] [address] MadeleineMartha Max MD Blood 04/12/2025 04/13/2025 8:1 6 AM CDT [employer] CHEMISTRY ORDERABLES Final Re sult Performing Organization Address [facility] Co de Phone Number [facility] [phone] [address] [facility] [address] [place] [address] * FERRITIN (04/12/2025 12:00 AM CDT) FERRITIN 43 38 - 380 ng/mL [facility] Comment: Test Performed at: [facility] [facility] [address] [place] [address] Mil Max MD Blood 04/12/2025 04/13/2025 8:1 6 AM CDT us Yariel Thrasher DO CHEMISTRY ORDERABLES Final Re sult [facility] [phone] [facility] [facility] [address] [facility] [place] [address] * (ABNORMAL) VITAMIN B12 LEVEL (04/12/2025 12:00 AM CDT) VITAMIN B12 >2000(H) 200 - 1100 pg/mL [facility] Comment: Test Performed at: [facility] [facility] [address] [place] [address] Mil Max MD Blood 04/12/2025 04/13/2025 8:1 6 AM CDT us Yariel Thrasher DO CHEMISTRY ORDERABLES Final Re sult Performing Organization Address City/State/[facility] Co de Phone Number [facility] [phone] [address] [facility] [address] [place] [address] from Last 3 Months Insurance [facility] [id number] Care Teams Family Practice Medical Doctor Relationship Specialty Start Date End Date Yariel Thrasher DO [address] [place] [address] PCP - General Family Practice 12/18/22
--- OUTSIDE RECORDS SUMMARY | 2025-04-23 10:05 | XMS_ITS | Encounter Summary ---
Author Organization [facility] Address [address] [place] [address] Care Team Providers Care Sewing Line Baler Name Role Phone Lonicarlene Yariel BENNETT Primary Care Provider [phone] Reason for Visit * Reason Onset Date Comments Medication Refill 04/18/2025 Encounter Details Date Type Department Care Team (Late Contact Info) Description 04/18/2025 Refill [facility] Medicine [address] [phone] Yariel Thrasher DO [address] [phone] Chronic right-sided low back pain with sciatica, [...] on file Legal Sex Male 4:48 AM RADIOGRAPHER TECHNOLOGIST Gender Identity Not on file Sexual Orientation Not on file documented as of this encounter Plan of Treatment Upcoming Encounters Date Type Department Care Team (Late Contact Info) Description 05/05/2025 2:20 PM CDT Office Visit [facility] [address] [place] [address] Niurka Briscoe MD [address] [place] [address] 05/13/2025 4:00 PM RADIOGRAPHER TECHNOLOGIST Appointment [facility] [address] [place] [phone] Radha Marroquin, ACCOUNT MANAGER SALES REPRESENTATIVE [address] [place] [phone] 10/20/2025 9:40 AM CDT Office Visit [facility] [address] [place] [phone] Yariel Thrasher DO [address] [place] [phone] documented as of this encounter Visit Diagnoses Diagnosis Chronic right-sided low back pain with sciatica, sciatica laterality unspecified documented in this encounter Additional Health Concerns Assessment Noted Time PHQ-9 Depression Total Score: 4 04/12/20 25 2:47 PM CDT documented as of this encounter Care Teams Sewing Line Baler Relationship Specialty Start Date End Date Yariel Thrasher DO [address] [place] [phone] PCP - General Family Practice 12/18/22 documented as of this encounter
--- NOTE | 2025-04-23 10:39 | ED_ITS ---
HPI - Back Pain/Injury General: Chief Complaint: Back Pain/Injury Stated Complaint: back pain Time Seen by Provider: 04/23/25 10:29 Source: patient Mode of arrival: ambulatory Limitations: no limitations History of Present Illness: Patient is a 54-year-old male presents to ED today with a complaint of acute on chronic right sided sciatica back pain. Patient states he has had this pain for years. He states he usually sees pain management and has had nerve ablations in the past. He states he recently moved to the area and does have a referral for pain management placed by his PCP Dr. Ivey but states this appointment is not for 5 months at [facility] in [place]. Patient states he was given prescriptions for hydrocodone 5 mg/325mg with directions for one tablet every 12 hours as well as a prescription for baclofen by his primary care but these do not seem to be controlling his pain. He states his pain today feels similar to his chronic pain just worse in exacerbation. He also does have an upcoming MRI scheduled for early next month. MD elicited complaint: back pain Pertinent past history: prior back pain Onset (ago): day(s) Timing: constant Severity: severe Pain scale (0-10): 10 Similar Symptoms Previously: Yes Location: right lower back Radiation: right leg below the knee Exacerbating factors: movement and walking Relieving factors: none Associated symptoms: Reports no associated symptoms; Deny abdominal pain, chills, dysuria, fatigue, fever(s) or hematuria Treatments prior to arrival: NSAIDS and prescription analgesics Work related injury: No Related Data Previous Rx's ?Medication ?Instructions ?Recorded hydrocodone 7.5 mg-acetaminophen 1 tab PO Q6H PRN pain #20 tabs 04/23/25 325 mg tablet prednisone 10 mg tablet 10 mg PO DAILY 7 days #27 ta bs 04/23/25 Allergies Allergy/AdvReac Type Severity Reaction Status Date / Time No Known Allergies Allergy Verified 01/12/20 11:16 Review of Systems Const: Denies: fever(s), chills, body aches, fatigue or malaise Card: Denies: chest pain Resp: Denies: dyspnea GI: Denies: abdominal pain : Denies: flank pain, dysuria or hematuria Musc: Reports: back pain; Denies: neck pain, extremity pain, extremity swelling, joint pain, joint swelling or joint redness Skin/Breast: Denies: rash Neuro: Denies: headache(s), numbness in extremities, weakness in extremities or sensory changes Physical Exam Const: COMMON NORMALS: no acute distress, average body habitus, patient oriented x3, no limitations, healthy appearing, alert and well nourished GENERAL APPEARANCE: cooperative and appears older than stated age GI: COMMON NORMALS: Normal to inspection, nondistended, normoactive bowel sounds present, Soft to palpation, non-tender and no masses PALPATION: Yes Soft to palpation : COMMON NORMALS: Yes no CVA tenderness BLADDER/KIDNEY EXAM: Yes no CVA tenderness Back/Pelvis: COMMON NORMALS: no CVA tenderness and no thoracic nor lumbar tenderness THORACIC SPINE/UPPER BACK: No thoracic spinal tenderness LUMBAR SPINE/LOWER BACK: No lumbar spinal tenderness PELVIS: Yes buttocks normal and Yes sciatic notch tenderness on the right SACROILIAC JOINTS: Yes SI joint(s) abnormal SI joint details: tender to palpation (R) SACRUM: no tenderness COCCYX: no tenderness Extremity: COMMON NORMALS: normal to inspection, full ROM, capillary refill normal, no joint enlargement, no clubbing, cyanosis or edema, no calf tenderness and no pedal edema NARRATIVE EXTREMITY EXAM: distal pulses normal GENERAL: Yes normal exam except as noted Neuro: COMMON NORMALS: patient oriented x3, moves all extremities, no focal motor deficits and no sensory deficits noted SENSORIUM/ORIENTATION: Yes alert MOTOR EXAM: 5/5 motor strength present throughout Course Vital Signs: Vital signs: Vital Signs Temperature 97.8 F 04/23/25 09:55 Pulse Rate 73 04/23/25 12:20 Respiratory Rate 18 04/23/25 09:55 Blood Pressure 164/91 04/23/25 12:20 Pulse Oximetry 97 04/23/25 12:20 Oxygen Delivery Me thod Room Air 04/23/25 09:55 MDM - Back Pain/Injury Medical Decision Making Patient feels better with IV medications given here. Will increase the frequency of his hydrocodone. He is okay taking his baclofen and [id number] anti-inflammatories. Will also place him on a prednisone taper. Will place a case management referral to try to get him a sooner appointment with pain management here through [facility]. Continue plan for outpatient MRI imaging. Differential Diagnosis Likely lumbar radiculopathy, sciatica and strain of lumbar region Medical Records I reviewed the patient's medical records. No radiology studies performed this visit Discharge Plan Discharge Patient Disposition: Home Clinical Impression: Right sided sciatica Condition: Stable Prescriptions: New prednisone 10 mg tablet 10 mg PO DAILY 7 Days Qty: 27 0RF Rx Instructions: 6 tabs on days 1-2, 5 tabs on days 3, 4 tabs on day 4, 3 tabs on day 5, 2 tabs on day 6, 1 tab on day 7 hydrocodone-acetaminophen 7.5-325 mg tablet 1 tab PO Q6H PRN (Reason: pain) Qty: 20 0RF Discharge Orders: Discharge ED (Routine); Ordered 04/23/25 Ordered By: Vesna Melara Patient Instructions: Sciatica (ED), Opioid Safety, Pain Management, Patient Portal & Alesha Instructions, Sciatica Activity Restrictions/Additional Instructions: As we discussed, I have placed a referral for pain management to hopefully get you a sooner appointment. Print Language: Estonian Coding Level of Care Code ED Dressage Judge for Radha Reyes
[2025-04-23] MEDS: orphenadrine 30 mg/mL Inj 2 mL 60 MG IVP (11:17)
[2025-04-23] MEDS: HYDROmorphone 0.5 MG/0.5 ML INJ 1 MG IVP (11:19)
[2025-04-23 11:31] VITALS: BP 157/75; PULSE 82; O2SAT 100
[2025-04-23 12:20] VITALS: BP 164/91; PULSE 73; O2SAT 97
== END 2025-04-23 12:21 | disposition home or self-care (01) ==
PROVIDERS: Emergency Provider Physician Assistant
DX: M54.31 Sciatica, right side (principal)
CPT/HCPCS: 96374; 96375; 99284; J1100; J1171; J1885; J2360

== ENCOUNTER 2025-07-07 08:45 | Oncology outpatient (recurring) (ONCR) | payer MEDICAID, SELFPAY ==
[2025-06-17 08:53] LABS: Hematocrit 35.4 % (37-53); Hemoglobin 11.60 g/dL (11.27-16.99); Mean Corpuscular HGB Conc 32.8 g/dL (30-55); Mean Corpuscular Hemoglobin 30.1 pg (27-33); Mean Corpuscular Volume 91.9 fl (82-101); Nucleated Red Blood Cells % 0 %; Platelet Count 288 10^3/cmm (157-399); Red Blood Count 3.85 10^6/uL (3.85-5.65); White Blood Count 23.05 10^3/uL (3.29-11.43)
[2025-06-17 09:18] LABS: Alanine Aminotransferase 20 U/L (0-41); Albumin Level 3.7 g/dL (3.5-5.2); Alkaline Phosphatase 143 U/L (40-130); Anion Gap 18.3 (5-19); Aspartate Amino Transferase 20 U/L (0-40); Blood Urea Nitrogen 35 mg/dL (6-20); Calcium 8.8 mg/dL (8.5-10.5); Carbon Dioxide 21 mmol/L (22-29); Chloride 101 mmol/L (98-107); Ferritin 858 ng/mL (30-400); Globulin 2.9 g/dL (1.3-4.6); Glucose 147 mg/dL (65-115); Iron 141 ug/dL (59-158); Osmolality Calculated 293 mOsm/kg (285-295); Potassium 4.3 mmol/L (3.5-5.1); Sodium 136 mmol/L (136-145); Total Iron Binding Capacity 280 mcg/dl; Total Protein 6.6 g/dL (6.6-8.7); Unsaturated Iron Binding 139 ug/dL (112-347)
[2025-06-17 09:33] LABS: Vitamin B12 1990 pg/mL (232-1245)
[2025-07-05] MEDS: denosumab 120 mg SDV (Infusion Clinic Only) SUBCUT (12:08)
[2025-07-05 12:33] LABS: Hematocrit 30.7 % (37-53); Hemoglobin 10.30 g/dL (11.27-16.99); Mean Corpuscular HGB Conc 33.6 g/dL (30-55); Mean Corpuscular Hemoglobin 30.1 pg (27-33); Mean Corpuscular Volume 89.8 fl (82-101); Nucleated Red Blood Cells % 0 %; Platelet Count 275 10^3/cmm (157-399); Red Blood Count 3.42 10^6/uL (3.85-5.65); White Blood Count 4.17 10^3/uL (3.29-11.43)
[2025-07-05 13:06] LABS: Alanine Aminotransferase 18 U/L (0-41); Albumin Level 3.9 g/dL (3.5-5.2); Alkaline Phosphatase 163 U/L (40-130); Anion Gap 17.6 (5-19); Aspartate Amino Transferase 24 U/L (0-40); Blood Urea Nitrogen 21 mg/dL (6-20); Calcium 9.8 mg/dL (8.5-10.5); Carbon Dioxide 26 mmol/L (22-29); Chloride 91 mmol/L (98-107); Globulin 3.0 g/dL (1.3-4.6); Glucose 131 mg/dL (65-115); Osmolality Calculated 275 mOsm/kg (285-295); Potassium 4.6 mmol/L (3.5-5.1); Sodium 130 mmol/L (136-145); Thyroid Stimulating Hormone 0.61 uIU/mL (0.27-4.20); Total Protein 6.9 g/dL (6.6-8.7)
[2025-07-05 14:46] LABS: Magnesium 2.0 mg/dL (1.7-2.3)
[2025-07-05 16:10] VITALS: BP 110/64; PULSE 84; RESP 17; TEMP 36.1; O2SAT 96
[2025-07-07 09:02] LABS: Hematocrit 26.2 % (37-53); Hemoglobin 8.70 g/dL (11.27-16.99); Mean Corpuscular HGB Conc 33.2 g/dL (30-55); Mean Corpuscular Hemoglobin 30.2 pg (27-33); Mean Corpuscular Volume 91.0 fl (82-101); Nucleated Red Blood Cells % 0 %; Platelet Count 173 10^3/cmm (157-399); Red Blood Count 2.88 10^6/uL (3.85-5.65); White Blood Count 2.16 10^3/uL (3.29-11.43)
[2025-07-07 09:21] LABS: Alanine Aminotransferase 15 U/L (0-41); Albumin Level 3.4 g/dL (3.5-5.2); Alkaline Phosphatase 140 U/L (40-130); Anion Gap 14.8 (5-19); Aspartate Amino Transferase 22 U/L (0-40); Blood Urea Nitrogen 8 mg/dL (6-20); Calcium 8.4 mg/dL (8.5-10.5); Carbon Dioxide 26 mmol/L (22-29); Chloride 96 mmol/L (98-107); Globulin 2.8 g/dL (1.3-4.6); Glucose 110 mg/dL (65-115); Osmolality Calculated 275 mOsm/kg (285-295); Potassium 3.8 mmol/L (3.5-5.1); Sodium 133 mmol/L (136-145); Total Protein 6.2 g/dL (6.6-8.7)
== END 2025-07-07 23:59 | disposition home or self-care (01) ==
PROVIDERS: Nurse Practitioner; Visit Provider Internal Medicine
DX: Z53.9 Procedure and treatment not carried out, unspecified reason; C34.91 Malignant neoplasm of unspecified part of right bronchus or lung
CPT/HCPCS: 36415; 80053; 82607; 82728; 82746; 83010; 83540; 83550; 83615; 83735; 84443; 85025; 85045; 96360; 96372; J0897; J7030